=== PATIENT | male | born 1995 | race African-American/Black ===

== ENCOUNTER 2017-03-24 10:04 | Emergency (ER) | payer MEDICAID ==
[~2017-03-24] VITALS: Ht 180.3 cm; Wt 104.0 kg
[2017-03-24] MEDS ORDERED: IBUPROFEN 800MG TABLET PO ONE (12:15)
[2017-03-24 12:18] VITALS: BP 146/71
== END 2017-03-24 12:35 | disposition home or self-care (01) ==
LOC: ER 12:31
DX: S39.012A Strain of muscle, fascia and tendon of lower back, initial encounter (principal); M62.830 Muscle spasm of back; R51 Headache; V49.49XA Driver injured in collision with other motor vehicles in traffic accident, initial encounter; Y93.89 Activity, other specified; Y92.410 Unspecified street and highway as the place of occurrence of the external cause; Z87.828 Personal history of other (healed) physical injury and trauma
CPT/HCPCS: 99282